=== PATIENT | female | born 1985 | race Hispanic/Latino ===

== ENCOUNTER 2019-01-13 00:33 | Emergency (ER) | payer SELFPAY ==
[2019-01-13] MEDS ORDERED: Acetaminophen 500 MG TAB ONE (03:53)
--- NOTE | 2019-01-13 08:29 | ULT ---
PRELIMINARY REPORT/[facility]/AFTER HOURS PROCEDURE EXAM: US Duplex Artery and Vein of the Abdominal and/or Reproductive Organs. 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 Complete duplex exam focused on the ovaries. Duplex exam was added to evaluate for torsion and other vascular conditions. COMPARISON: No relevant prior studies available. FINDINGS: Right adnexa: Normal arterial and venous flow to the right ovary by color Doppler and spectral waveform analysis. Left adnexa: Normal arterial and venous flow to the left ovary by color Doppler and spectral waveform analysis. IMPRESSION: 1. No evidence of ovarian torsion. 2. See below report for ovarian morphology description. 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 Transvaginal imaging was used for better evaluation of the fetus and adnexa. COMPARISON: No relevant prior studies available. FINDINGS: GESTATION: Gestation: No gestational sac visualized MATERNAL: Uterus: The uterus measures 10.3 x 5.8 x 5.8 cm. The endometrium measures 1.4 cm in thickness and is homogeneous. Cervix: Normal appearance of the cervix. Right adnexa: The right ovary measures 4.4 x 3.8 x 3.5 cm. There is a 2.6 cm thick walled cyst in the right ovary, most likely a corpus luteal cyst. Left adnexa: The left ovary measures 2.9 x 1.5 x 2.5 cm. No left adnexal mass. Intraperitoneal: Trace free fluid in the pelvis. IMPRESSION: 1. Positive beta hCG without identification of an intrauterine or ectopic consistent with of unknown location. Recommend following beta hCG trend and followup transvaginal imaging as clinically indicated. 2. No evidence of a left adnexal mass. Thank you for allowing us to participate in the care of your patient. Dictated and Authenticated by: Shante Diaz MD 01/13/2019 4:23 AM Central Time ([place]) FINAL REPORT EMERGENCY AFTER HOURS STUDY ULTRASOUND PELVIC ULTRASOUND TRANSVAGINAL DOPPLER DUPLEX: DATE: 01/13/2019 HISTORY: A 33-year-old female with positive beta hCG, left pelvic pain, and vaginal bleeding. TECHNIQUE: Transabdominal transducer and endovaginal transducer used to visualize intrapelvic contents with amor scale, color-flow, and spectral analysis. FINDINGS: No intrauterine gestational sac. Normal size ovaries with blood flow. No free fluid in the cul-de-s ac. No major disagreement with preliminary report by [facility]. IMPRESSION: Possibilities of missed versus occult ectopic , given history of positive beta hCG. Recommend follow-up pelvic and transvaginal ultrasound, and follow-up of serum beta hCG, as clinicall y indicated. CODE QA Transcribed Date/Time: 01/13/2019 8:43 AM
== END 2019-01-13 04:07 | disposition home or self-care (01) ==
LOC: ERS 00:33
DX: O03.9 Complete or unspecified spontaneous abortion without complication (principal); F32.9 Major depressive disorder, single episode, unspecified
CPT/HCPCS: 36415; 76856; 84702; 86900; 86901